=== PATIENT | female | born 1990 | race Asian ===

== ENCOUNTER 2018-07-26 13:12 | Emergency (ER) | payer OTHER ==
[~2018-07-26] VITALS: Ht 175.3 cm; Wt 127.9 kg
--- NOTE | 2018-07-26 13:38 | NUR ---
3 DAYS HX OF COUGH/SOB. DENIES FEVER/N/V. FEVER OF OF 99.9 IN TRIAGE. CLEAR LUNGS
--- NOTE | 2018-07-26 13:49 | NUR ---
FAMILY SERVICES ASSISTANT FINALLY ABLE TO OBTAIN B/P CABLE-BLOOD PRESSURE 240. RECHECKED X3 W/ CORRECT CUFF AND BILATERAL ARMS. TO TRANSFER TO CORE ROOM
[2018-07-26] MEDS ORDERED: ASPIRIN 81 MG TABLET CHEW PO ONE (14:00)
--- NOTE | 2018-07-26 14:04 | NUR ---
MANUAL B/P OF 255/160.-PROVIDER AWARE EMT AT BEDSIDE OBTAINING PIV TRANSFERRED TO ROOM 15 REPORT TO EVETTE CHOI
--- NOTE | 2018-07-26 14:05 | NUR ---
DENIES COUGH MEDICINE/COLD MEDICINE DENIES SXS ASSOCIATED W/ HTN (VISION CHANGES/HEADAXHE/CMS ABNORMALITIES)
--- NOTE | 2018-07-26 14:15 | NUR ---
BREAK RN: PT UPRIGHT ON GURNEY AWAKE & COMFORTABLE, RESPONDS APPROP TO STAFF, NAD, COMFORT MEASURES PROVIDED, CALL LIGHT WITHIN REACH.
[2018-07-26] MEDS ORDERED: ENALAPRILAT 1.25 MG/ML, 1ML ONE (14:17)
[2018-07-26] MEDS ORDERED: ASPIRIN 81 MG TABLET CHEW ONE (14:17)
[2018-07-26 14:22] LABS: BASOPHILS # (AUTO) 0.01 x10^3/uL (0-0.1); BASOPHILS % (AUTO) 0 % (0-1); EOSINOPHILS # (AUTO) 0.06 x10^3/uL (0-0.4); EOSINOPHILS % (AUTO) 1 % (1-7); LYMPHOCYTES % (AUTO) 16 % (22-44); MD NO; MEAN CORPUSCULAR HEMOGLOBIN 24.4 pg (27.0-34.8); MEAN CORPUSCULAR HGB CONC 31.3 g/dL (32.4-35.8); MEAN CORPUSCULAR VOLUME 77.9 fL (80-100); MEAN PLATELET VOLUME 8.6 fL (7.4-10.4); MONOCYTES # (AUTO) 0.28 x10^3/uL (0.2-0.8); MONOCYTES % (AUTO) 3 % (2-9); NEUTROPHILS # (AUTO) 7.27 x10^3/uL (1.8-6.8); NEUTROPHILS % (AUTO) 80 % (42-75); PLATELET COUNT 305 x10^3/uL (130-400); RED BLOOD COUNT 5.53 x10^6/uL (3.82-5.3); RED CELL DISTRIBUTION WIDTH 16.3 % (9.6-15.2)
[2018-07-26] MEDS ORDERED: ENALAPRILAT 1.25 MG/ML, 2ML IV ONE (14:30)
[2018-07-26] MEDS ORDERED: LABETALOL 5MG/ML, 20ML IVPush ONE (14:30)
[2018-07-26 14:37] LABS: ALBUMIN 4.1 g/dL (3.4-5.0); ANION GAP 8 mmol/L (5-15); CALCIUM 8.8 mg/dL (8.5-10.1); CHLORIDE 110 mmol/L (98-107)
[2018-07-26 14:41] LABS: CREATININE 1.04 mg/dL (0.55-1.02)
[2018-07-26 14:42] LABS: TROPONIN I 0.038 ng/mL (0.000-0.045)
[2018-07-26 14:51] LABS: RAPID INFLUENZA A Negative (Negative); RAPID INFLUENZA B Negative (Negative)
--- NOTE | 2018-07-26 15:15 | NUR ---
meds ordered from pharmacy
[2018-07-26] MEDS ORDERED: LABETALOL 5 MG/ML SYRINGE IVPush ONE (15:30)
[2018-07-26 15:40] VITALS: BP 198/128
== END 2018-07-26 16:30 | disposition home or self-care (01) ==
LOC: ED 16:24
DX: J00 Acute nasopharyngitis [common cold] (principal); B34.9 Viral infection, unspecified; I10 Essential (primary) hypertension; F17.200 Nicotine dependence, unspecified, uncomplicated
CPT/HCPCS: 36415; 71046; 80048; 82040; 83880; 84484; 85025; 87400; 93005; 96374; 96375

== ENCOUNTER 2019-07-11 11:13 | Inpatient (IN) | payer OTHER ==
[~2019-07-11] VITALS: Ht 170.2 cm; Wt 126.9 kg
[2019-07-11] MEDS ORDERED: hydrALAzine 20 MG/ML, 1ML ONE ×2 (11:42→17:05)
[2019-07-11] MEDS ORDERED: LISINOPRIL 20 MG TABLET ONE (11:42)
[2019-07-11] MEDS ORDERED: ENALAPRILAT 1.25 MG/ML, 1ML ONE (11:47)
[2019-07-11] MEDS ORDERED: LABETALOL 5MG/ML, 20ML ONE (11:47)
--- NOTE | 2019-07-11 11:54 | NUR ---
PT WITH ELEVATED BP, 269/173. PT WITH C/O JOENS X 3 DAYS. PT STATES SHE HAS BEEN OUT OF HER LISINOPRIL FOR APPROX 1 MONTH. PT DENIES CP,SOB. PT HAS A COUGH X 2 WEEKS WITH THICK MUCOUS, GREEN/WHITE. PT DENIES FEVERS. ERPROVIDER IN TO EVAL PT, ORDERS RECIEVED. PIV INITIATED BY TRAUMA RN. PT MEDICATED PER MAR Addendum: 07/11/19 at 1158 by HERB NO OTHER NEURO SYMPTOMS REPORTED, GROSS NEURO INTACT
[2019-07-11] MEDS ORDERED: LABETALOL 5MG/ML, 20ML IVPush ONE ×2 (12:00→13:00)
[2019-07-11] MEDS ORDERED: ENALAPRILAT 1.25 MG/ML, 2ML IV ONE (12:00)
[2019-07-11 12:02] LABS: BASOPHILS # (AUTO) 0.02 x10^3/uL (0-0.1); BASOPHILS % (AUTO) 0 % (0-1); EOSINOPHILS # (AUTO) 0.03 x10^3/uL (0-0.4); EOSINOPHILS % (AUTO) 0 % (1-7); LYMPHOCYTES # (AUTO) 1.75 x10^3/uL (1-3.4); LYMPHOCYTES % (AUTO) 19 % (22-44); MD NO; MEAN CORPUSCULAR HGB CONC 33.1 g/dL (32.4-35.8); MEAN CORPUSCULAR VOLUME 84.8 fL (80-100); MEAN PLATELET VOLUME 8.2 fL (7.4-10.4); MONOCYTES # (AUTO) 0.36 x10^3/uL (0.2-0.8); MONOCYTES % (AUTO) 4 % (2-9); NEUTROPHILS # (AUTO) 6.88 x10^3/uL (1.8-6.8); NEUTROPHILS % (AUTO) 76 % (42-75); PLATELET COUNT 259 x10^3/uL (130-400); RED BLOOD COUNT 5.38 x10^6/uL (3.82-5.3); RED CELL DISTRIBUTION WIDTH 14.7 % (9.6-15.2)
[2019-07-11 12:10] LABS: ALANINE AMINOTRANSFERASE 27 U/L (12-78); ANION GAP 9 mmol/L (5-15); CALCIUM 8.9 mg/dL (8.5-10.1); CHLORIDE 104 mmol/L (98-107); CREATININE 1.44 mg/dL (0.55-1.02)
[2019-07-11 12:12] LABS: ALKALINE PHOSPHATASE 61 U/L (45-117); BILIRUBIN,TOTAL 0.7 mg/dL (0.2-1.0); TOTAL PROTEIN 7.9 g/dL (6.4-8.2)
--- NOTE | 2019-07-11 12:16 | NUR ---
PT TO CT AT THIS TIME
[2019-07-11] MEDS ORDERED: MORPHINE SULFATE 4 MG/ML, 1ML ONE (12:43)
[2019-07-11] MEDS ORDERED: MORPHINE SULFATE 4 MG/ML, 1ML IVPush ONE (13:00)
[2019-07-11 13:08] LABS: MICROSCOPIC INDICATED
[2019-07-11] MEDS ORDERED: POTASSIUM CHLORIDE 20 MEQ TAB.ER.PRT PO ONE (13:30)
--- NOTE | 2019-07-11 13:32 | NUR ---
TASK NURSE: RECEIVED REPORT FROM LOUIE
[2019-07-11] MEDS ORDERED: POTASSIUM CHLORIDE 20 MEQ TAB.ER.PRT ONE (13:53)
--- NOTE | 2019-07-11 14:01 | NUR ---
ADMITING PROVIDER AT BEDSIDE EXAMINING PT
[2019-07-11] MEDS ORDERED: HYDROmorphone 1 MG/ML, 1ML INJ IV ONE (14:30)
--- NOTE | 2019-07-11 15:19 | NUR ---
PT LYING IN BED. RN IN TO INTRODUCE NEW STAFF, RELIEVING DAY RN. REPORT FROM LOUIE CHOI. VITALS TAKEN AND BLOOD PRESSURE REMAINS HIGH. ATTEMPTING TO OBTAIN A BED FOR THE PATIENT. PT C/O HEADACE IN THE OCCIPITAL REGION. WILL INSPECT HER MEDICATION LIST TO SEE IF ANY PRN'S ARE AVAILABLE AT THIS TIME.
--- NOTE | 2019-07-11 15:34 | NUR ---
RN IN TO ASSESS PATIENT. PT SITTING UP IN BED. ORDER TO WALK PATIENT WITH PULSE TO EXAM OXYGEN LEVELS. RN ATTACHES PORTABLE PULSE OX TO PATIENT, AND PATIENT AMBULATES WITH RN AROUND THE RESP SIDE OF THE ED. PT WEARS MASK ENTIRE TIME, AND SATS STAY AT 93-94%. PT DID NOT RUN OUT OF BREATH, OR BECOME SOB ON WALK. MD INFORMED OF PATIENT STATUS. MD INTO ROOM TO DISCUSS POC.
--- NOTE | 2019-07-11 15:38 | NUR ---
MRI CALLED TO INFORM RN THAT THE TEST ORDER FOR HER WILL BE AVAILABLE IN 45 MINUTES. RN INTO ROOM TO COMPLETE THE MRI SCREENING TOOL. PT TOLERATED PROCEDURE WELL.
--- NOTE | 2019-07-11 16:05 | NUR ---
PT TO XRAY AND THEN WILL GO TO MRI
[2019-07-11] MEDS ORDERED: AMLODIPINE 5 MG TABLET PO SCH (16:30)
[2019-07-11] MEDS ORDERED: hydrALAzine 20 MG/ML, 1ML IVPush PRN (16:30)
[2019-07-11] MEDS ORDERED: GADOTERATE 10 MMOL/20 ML SYR ONE (16:33)
--- NOTE | 2019-07-11 17:00 | NUR ---
UPON RETURN FROM MRI ASSUMED CARE OF PT. C/O JONES AND TO BE MEDICATED FOR SAME. a&oX4
[2019-07-11] MEDS ORDERED: AMLODIPINE 5 MG TABLET ONE (17:02)
[2019-07-11] MEDS ORDERED: HEPARIN 5,000 UNITS/ML, 1ML ONE (17:03)
[2019-07-11] MEDS ORDERED: HYDROmorphone 1 MG/ML, 1ML INJ ONE (17:04)
[2019-07-11] MEDS: HEPARIN 5,000 UNITS/ML, 1ML SQ SCH ×2 (17:08→23:55)
[2019-07-11] MEDS: hydrALAzine 20 MG/ML, 1ML IVPush PRN (17:09)
--- NOTE | 2019-07-11 17:40 | NUR ---
CALL OUT TO [facility] TO DISCUSS CURRENT BP AND TO CLARIFY WHETHER PT NEEDS TO HAVE COVID R/O
--- NOTE | 2019-07-11 17:58 | NUR ---
THROUGHPUT: SPOKE WITH [facility] RESIDENT REGARDING COVID-19 R/O WILL COME DOWN AND TALKE WITH PATIENT AND FOLLOW UP WITH PRIMARY
[2019-07-11] MEDS ORDERED: ONDANSETRON 2MG/ML, 2ML ONE ×2 (18:05→19:37)
[2019-07-11] MEDS ORDERED: ONDANSETRON ODT 4 MG ONE (18:09)
--- NOTE | 2019-07-11 18:10 | NUR ---
SITTING ON EDGE OF BED AND VOMITED TIMES 1. MEDICATED PER PROTOCOL WITH ZOFRAN FOR SAME
--- NOTE | 2019-07-11 18:20 | NUR ---
DR SHAH AWARE OF CURRENT BP
--- NOTE | 2019-07-11 18:20 | NUR ---
DR GASPAR AT BEDSIDE EXAMINING PT
[2019-07-11] MEDS ORDERED: BUTALB/APAP/CAFFEINE 50MG/325MG/40MG PO ONE (18:30)
[2019-07-11] MEDS ORDERED: ONDANSETRON 2MG/ML, 2ML IVPush ONE (18:30)
[2019-07-11] MEDS ORDERED: morphine SULFATE/PF 1 MG/ML, 10ML IV PRN (18:30)
[2019-07-11] MEDS ORDERED: ONDANSETRON ODT 4 MG SL ONE (18:30)
--- NOTE | 2019-07-11 19:01 | NUR ---
REPORT TO MIA CHOI.
--- NOTE | 2019-07-11 19:47 | NUR ---
ASSUMED CARE OF PT. PT RESTING ON GURNEY C/O JONES 08/30 AND NAUSEA, MEDICATED PER APR.
--- NOTE | 2019-07-11 19:59 | NUR ---
REPORT GIVEN TO DAYLIN CHOI.
[2019-07-11] MEDS: ACETAMINOPHEN 325 MG TABLET PO PRN (21:00)
[2019-07-11] MEDS: MORPHINE SULFATE 4 MG/ML, 1ML IV PRN ×2 (21:01→23:56)
[2019-07-11 21:02] LABS: HCG UR SG 1.024 (1.003-1.030)
[2019-07-11 21:16] LABS: AMPHETAMINE SCREEN, URINE Negative (Negative); BARBITURATE SCREEN, URINE Negative (Negative); BENZODIAZEPINE SCREEN, URINE Negative (Negative); CANNABINOID SCREEN, URINE Negative (Negative); COCAINE SCREEN, URINE Negative (Negative); METHADONE SCREEN, URINE Negative (Negative); OPIATE SCREEN, URINE Negative (Negative)
[2019-07-11 22:16] VITALS: BP 220/127
[2019-07-12 04:19] VITALS: BP 199/127
[2019-07-12] MEDS: hydrALAzine 20 MG/ML, 1ML IVPush PRN (04:35)
[2019-07-12] MEDS ORDERED: AMLODIPINE 5 MG TABLET PO ONE (05:00)
[2019-07-12] MEDS: MORPHINE SULFATE 4 MG/ML, 1ML IV PRN ×2 (05:07→09:07)
[2019-07-12 05:28] LABS: BASOPHILS # (AUTO) 0.01 x10^3/uL (0-0.1); BASOPHILS % (AUTO) 0 % (0-1); EOSINOPHILS % (AUTO) 2 % (1-7); LYMPHOCYTES # (AUTO) 1.99 x10^3/uL (1-3.4); LYMPHOCYTES % (AUTO) 30 % (22-44); MD NO; MEAN CORPUSCULAR HEMOGLOBIN 27.9 pg (27.0-34.8); MEAN CORPUSCULAR HGB CONC 32.6 g/dL (32.4-35.8); MEAN CORPUSCULAR VOLUME 85.6 fL (80-100); MEAN PLATELET VOLUME 8.8 fL (7.4-10.4); MONOCYTES # (AUTO) 0.42 x10^3/uL (0.2-0.8); MONOCYTES % (AUTO) 6 % (2-9); NEUTROPHILS % (AUTO) 62 % (42-75); PLATELET COUNT 216 x10^3/uL (130-400); RED BLOOD COUNT 4.98 x10^6/uL (3.82-5.3); RED CELL DISTRIBUTION WIDTH 14.8 % (9.6-15.2)
[2019-07-12 05:32] LABS: ANION GAP 8 mmol/L (5-15); CALCIUM 8.7 mg/dL (8.5-10.1); CHLORIDE 106 mmol/L (98-107); CREATININE 1.28 mg/dL (0.55-1.02)
[2019-07-12 05:38] LABS: C-REACTIVE PROTEIN, QUANT 0.08 mg/dL (0.02-0.49)
[2019-07-12 05:57] LABS: HCT (SEDRATE) 42.6 % (34.6-47.8)
[2019-07-12] MEDS: HEPARIN 5,000 UNITS/ML, 1ML SQ SCH ×2 (08:53→16:35)
[2019-07-12 09:10] VITALS: BP 207/117
[2019-07-12] MEDS: ONDANSETRON 2MG/ML, 2ML IVPush PRN (09:20)
[2019-07-12] MEDS ORDERED: methylPREDNISolone SOD SUCC 40 MG/ML IV SCH (10:00)
[2019-07-12] MEDS ORDERED: PHARMACOKINETIC MONITORING MC PRN (10:30)
[2019-07-12] MEDS ORDERED: CEFTRIAXONE PMX 2GM/50ML 50 ML IV SCH (10:30)
[2019-07-12] MEDS ORDERED: VANCOMYCIN PER PHARMACY MC PRN ×2 (10:30)
[2019-07-12 10:38] VITALS: BP 170/92
[2019-07-12] MEDS: ACYCLOVIR 850 MG in SODIUM CHLORIDE 0.9% 250 ML IV SCH ×2 (10:49→21:09)
[2019-07-12] MEDS ORDERED: VANCOMYCIN 1,800 MG in SODIUM CHLORIDE 0.9% 250 ML IV SCH (11:00)
[2019-07-12] MEDS ORDERED: PROMETHAZINE 25 MG/ML, 1ML ONE (11:20)
[2019-07-12] MEDS ORDERED: PROMETHAZINE 25 MG/ML, 1ML IM PRN (11:30)
[2019-07-12] MEDS ORDERED: LIDOCAINE 1%, 10ML ONE (11:41)
[2019-07-12] MEDS: ACETAMINOPHEN 325 MG TABLET PO PRN ×3 (13:14→22:34)
[2019-07-12 13:58] LABS: GLUCOSE, CSF 49 mg/dL (40-80); TOTAL PROTEIN,CSF 86 mg/dL (15-45)
[2019-07-12 16:38] VITALS: BP 155/93
[2019-07-13] MEDS: HEPARIN 5,000 UNITS/ML, 1ML SQ SCH ×3 (00:30→15:59)
[2019-07-13] MEDS: hydrALAzine 20 MG/ML, 1ML IVPush PRN (04:22)
[2019-07-13] MEDS: ONDANSETRON 2MG/ML, 2ML IVPush PRN (04:22)
[2019-07-13] MEDS: ACYCLOVIR 850 MG in SODIUM CHLORIDE 0.9% 250 ML IV SCH ×3 (04:23→21:59)
[2019-07-13] MEDS: ACETAMINOPHEN 325 MG TABLET PO PRN ×2 (04:55→08:36)
[2019-07-13] MEDS: MORPHINE SULFATE 4 MG/ML, 1ML IV PRN (06:28)
[2019-07-13] MEDS: AMLODIPINE 5 MG TABLET PO SCH (08:31)
[2019-07-13] MEDS ORDERED: methylPREDNISolone SOD SUCC 125 MG/2 ML ONE (08:33)
[2019-07-13] MEDS ORDERED: hydrALAzine 20 MG/ML, 1ML IVPush PRN (12:30)
[2019-07-13] MEDS: LISINOPRIL 20 MG TABLET PO SCH ×2 (12:34→21:59)
[2019-07-13] MEDS: LABETALOL 5MG/ML, 20ML IVPush PRN ×2 (12:34→15:59)
[2019-07-13] MEDS: CALCIUM CARBONATE 500 MG TAB.CHEW PO PRN ×2 (17:53→23:14)
[2019-07-14] MEDS: HEPARIN 5,000 UNITS/ML, 1ML SQ SCH ×3 (00:30→17:53)
[2019-07-14 01:15] LABS: TROPONIN I 0.154 ng/mL (0.000-0.045)
[2019-07-14] MEDS: ACYCLOVIR 850 MG in SODIUM CHLORIDE 0.9% 250 ML IV SCH (04:46)
[2019-07-14] MEDS: LABETALOL 5MG/ML, 20ML IVPush PRN (04:46)
[2019-07-14 04:53] LABS: ANION GAP 6 mmol/L (5-15); CALCIUM 8.5 mg/dL (8.5-10.1); CHLORIDE 106 mmol/L (98-107)
[2019-07-14 04:58] LABS: CREATININE 1.37 mg/dL (0.55-1.02); TROPONIN I 0.176 ng/mL (0.000-0.045)
[2019-07-14] MEDS: CALCIUM CARBONATE 500 MG TAB.CHEW PO PRN ×2 (06:20→13:15)
[2019-07-14] MEDS: AMLODIPINE 5 MG TABLET PO SCH (08:04)
[2019-07-14] MEDS: LISINOPRIL 20 MG TABLET PO SCH ×2 (08:05→20:14)
[2019-07-14] MEDS: CARVEDILOL 6.25 MG TABLET PO SCH ×2 (13:16→17:53)
[2019-07-15] MEDS: HEPARIN 5,000 UNITS/ML, 1ML SQ SCH ×3 (00:30→17:08)
[2019-07-15] MEDS: CARVEDILOL 6.25 MG TABLET PO SCH ×2 (06:22→17:08)
[2019-07-15] MEDS: AMLODIPINE 5 MG TABLET PO SCH (08:17)
[2019-07-15] MEDS: LISINOPRIL 20 MG TABLET PO SCH ×3 (08:17→21:42)
[2019-07-15] MEDS: DOXAZOSIN 2MG TABLET PO SCH (10:27)
[2019-07-15] MEDS ORDERED: LISINOPRIL 20 MG TABLET PO ONE (10:30)
[2019-07-15] MEDS: ACETAMINOPHEN 325 MG TABLET PO PRN (15:02)
[2019-07-15] MEDS: ALUMINUM/MAG/SIMETHICONE 30 ML UDC PO PRN (17:08)
[2019-07-15] MEDS: ONDANSETRON 2MG/ML, 2ML IVPush PRN (18:53)
[2019-07-16] MEDS: HEPARIN 5,000 UNITS/ML, 1ML SQ SCH ×3 (00:03→16:30)
[2019-07-16 04:15] LABS: ANION GAP 7 mmol/L (5-15); CALCIUM 8.1 mg/dL (8.5-10.1); CHLORIDE 107 mmol/L (98-107)
[2019-07-16] MEDS: LABETALOL 5MG/ML, 20ML IVPush PRN ×2 (04:20→14:37)
[2019-07-16] MEDS: DOXAZOSIN 2MG TABLET PO SCH (08:10)
[2019-07-16] MEDS: CARVEDILOL 6.25 MG TABLET PO SCH ×4 (08:10→18:41)
[2019-07-16] MEDS: AMLODIPINE 5 MG TABLET PO SCH (08:11)
[2019-07-16] MEDS: LISINOPRIL 20 MG TABLET PO SCH ×2 (08:11→20:18)
[2019-07-16] MEDS ORDERED: methylPREDNISolone SOD SUCC 40 MG/ML IV ONE (09:00)
[2019-07-16] MEDS: ALUMINUM/MAG/SIMETHICONE 30 ML UDC PO PRN (09:34)
[2019-07-16] MEDS ORDERED: FAMOTIDINE 20 MG TABLET PO ONE (11:30)
[2019-07-16 16:19] VITALS: BP 174/99
[2019-07-16 16:29] VITALS: BP 147/71
[2019-07-16 20:02] VITALS: BP 160/89
[2019-07-16] MEDS: ACETAMINOPHEN 325 MG TABLET PO PRN (20:18)
[2019-07-17] VITALS (12 sets, daily range): BP systolic 124–201; BP diastolic 68–117
[2019-07-17] MEDS: HEPARIN 5,000 UNITS/ML, 1ML SQ SCH ×3 (00:31→16:27)
[2019-07-17] MEDS: CARVEDILOL 6.25 MG TABLET PO SCH ×3 (05:21→17:52)
[2019-07-17 05:45] LABS: ANION GAP 6 mmol/L (5-15); CALCIUM 7.8 mg/dL (8.5-10.1); CHLORIDE 107 mmol/L (98-107)
[2019-07-17 05:50] LABS: CREATININE 1.29 mg/dL (0.55-1.02)
[2019-07-17] MEDS ORDERED: ACETAMINOPHEN 500 MG TABLET PO ONE (08:00)
[2019-07-17] MEDS: DOXAZOSIN 2MG TABLET PO SCH (08:06)
[2019-07-17] MEDS: LISINOPRIL 20 MG TABLET PO SCH ×2 (08:06→20:25)
[2019-07-17] MEDS: AMLODIPINE 5 MG TABLET PO SCH (08:06)
[2019-07-17] MEDS: LABETALOL 5MG/ML, 20ML IVPush PRN ×2 (16:27→21:56)
[2019-07-17] MEDS: ALUMINUM/MAG/SIMETHICONE 30 ML UDC PO PRN ×2 (17:33→21:56)
[2019-07-17] MEDS: ONDANSETRON 2MG/ML, 2ML IVPush PRN (17:34)
[2019-07-17 17:43] LABS: ANA SCREEN NEGATIVE (Negative)
[2019-07-17] MEDS: CALCIUM CARBONATE 500 MG TAB.CHEW PO PRN (19:27)
[2019-07-17] MEDS: ACETAMINOPHEN 325 MG TABLET PO PRN (19:29)
[2019-07-17] MEDS: AMLODIPINE 10 MG TAB PO SCH (20:25)
[2019-07-18] MEDS: HEPARIN 5,000 UNITS/ML, 1ML SQ SCH ×4 (00:40→16:30)
[2019-07-18 00:41] VITALS: BP 159/98
[2019-07-18 06:43] VITALS: BP 166/103
[2019-07-18] MEDS: ALUMINUM/MAG/SIMETHICONE 30 ML UDC PO PRN (07:45)
[2019-07-18] MEDS: AMLODIPINE 10 MG TAB PO SCH ×2 (07:46→20:21)
[2019-07-18] MEDS: DOXAZOSIN 2MG TABLET PO SCH (07:46)
[2019-07-18] MEDS: LISINOPRIL 20 MG TABLET PO SCH ×2 (07:46→20:21)
[2019-07-18] MEDS ORDERED: LABETALOL 5MG/ML, 20ML IVPush PRN (08:30)
[2019-07-18 08:52] VITALS: BP 160/95
[2019-07-18] MEDS ORDERED: HYDROCHLOROTHIAZIDE 12.5 MG CAPSULE PO ONE (11:30)
[2019-07-18 12:11] VITALS: BP 156/99
[2019-07-18] MEDS ORDERED: hydrALAzine 20 MG/ML, 1ML IVPush PRN (12:30)
[2019-07-18] MEDS: ONDANSETRON 2MG/ML, 2ML IVPush PRN (14:46)
[2019-07-18] MEDS: CARVEDILOL 6.25 MG TABLET PO SCH (18:00)
[2019-07-18 20:10] VITALS: BP 158/99
[2019-07-19] MEDS: ACETAMINOPHEN 325 MG TABLET PO PRN ×3 (00:15→21:48)
[2019-07-19] MEDS: HEPARIN 5,000 UNITS/ML, 1ML SQ SCH ×4 (00:31→23:23)
[2019-07-19 01:34] VITALS: BP 147/96
[2019-07-19] MEDS: ONDANSETRON 2MG/ML, 2ML IVPush PRN ×3 (06:22→23:08)
[2019-07-19 06:36] LABS: ANION GAP 9 mmol/L (5-15); CALCIUM 7.8 mg/dL (8.5-10.1); CHLORIDE 105 mmol/L (98-107)
[2019-07-19 06:37] LABS: CREATININE 1.01 mg/dL (0.55-1.02)
[2019-07-19] MEDS ORDERED: HYDROCHLOROTHIAZIDE MC SCH (07:30)
[2019-07-19] MEDS: AMLODIPINE 10 MG TAB PO SCH ×2 (08:40→20:12)
[2019-07-19] MEDS: HYDROCHLOROTHIAZIDE 25 MG TABLET PO SCH (08:41)
[2019-07-19] MEDS: LISINOPRIL 20 MG TABLET PO SCH ×2 (08:41→20:12)
[2019-07-19 11:18] VITALS: BP 160/100
[2019-07-19] MEDS: FLUTICASONE NASAL SPRAY 16GM NAS SCH ×2 (15:13→20:18)
[2019-07-19 15:30] VITALS: BP 157/99
[2019-07-19 15:36] VITALS: BP 157/99
[2019-07-19 19:19] VITALS: BP 149/89
[2019-07-19 20:10] VITALS: BP 160/95
[2019-07-19] MEDS: FAMOTIDINE 20 MG TABLET PO SCH (20:18)
[2019-07-20 01:46] VITALS: BP 130/93
[2019-07-20 07:15] VITALS: BP 151/89
[2019-07-20 07:57] LABS: ANION GAP 9 mmol/L (5-15); CALCIUM 8.7 mg/dL (8.5-10.1); CHLORIDE 103 mmol/L (98-107); CREATININE 1.07 mg/dL (0.55-1.02)
[2019-07-20] MEDS ORDERED: HYDROCHLOROTHIAZIDE 12.5 MG CAPSULE PO SCH (09:00)
[2019-07-20] MEDS: LISINOPRIL 20 MG TABLET PO SCH (09:43)
[2019-07-20] MEDS: HYDROCHLOROTHIAZIDE 25 MG TABLET PO SCH (09:43)
[2019-07-20] MEDS: AMLODIPINE 10 MG TAB PO SCH (09:43)
[2019-07-20] MEDS: FAMOTIDINE 20 MG TABLET PO SCH (09:44)
[2019-07-20] MEDS: FLUTICASONE NASAL SPRAY 16GM NAS SCH (09:45)
[2019-07-20] MEDS: HEPARIN 5,000 UNITS/ML, 1ML SQ SCH (09:45)
[2019-07-20] MEDS ORDERED: LISI-170 PO (11:15)
[2019-07-20] MEDS ORDERED: HYDR25TA6 PO (11:15)
[2019-07-20] MEDS ORDERED: AMLO10TA8 PO (11:15)
[2019-07-20 12:52] VITALS: BP 150/97
== END 2019-07-20 14:44 | disposition home or self-care (01) | DRG 304 ==
LOC: ED 13:17 → EDIP 13:30 → ICU 20:34 → CCU 07-15 13:43 → 4EST 07-16 16:10 → DCLOUNGE 07-20 14:27
PROVIDERS: ADMIT Family Medicine; ATTEND Family Medicine
PROC: 009U3ZZ Drainage of Spinal Canal, Percutaneous Approach (ICD-10-PCS; principal; 2019-07-12)
PROC: B01B1ZZ Fluoroscopy of Spinal Cord using Low Osmolar Contrast (ICD-10-PCS; 2019-07-12)
DX: I16.1 Hypertensive emergency (principal); N17.0 Acute kidney failure with tubular necrosis; I10 Essential (primary) hypertension; F17.210 Nicotine dependence, cigarettes, uncomplicated; E87.6 Hypokalemia; K21.9 Gastro-esophageal reflux disease without esophagitis; R51 Headache; Z90.49 Acquired absence of other specified parts of digestive tract; Z82.49 Family history of ischemic heart disease and other diseases of the circulatory system
CPT/HCPCS: 36415; 89051; 96372; 96374; 96375; 99291; J3490; 62328; 70450; 70551; 70553; 71046; 80048; 80053; 80307; 81001; 81025; 82040; 82945; 83605; 84157; 84244; 84443; 84484; 85025; 85651; 86038; 86140; 86710; 87070; 87081; 87086; 87205; 87252; 87529; 87798; 93005; 93308; 93321; 93325; 93975; G0378; J0133; J0696; J1170; J1644; J2405; J2550; J2930; J3370; Q0162; A9575; J0360; J2270; J7050; U0001-CS

== ENCOUNTER 2019-12-20 09:35 | Emergency (ER) | payer OTHER ==
[~2019-12-20] VITALS: Ht 175.3 cm; Wt 135.1 kg
[~2019-12-20 09:35] MED LIST: AMLO10TA8 PO; HYDR25TA6 PO; LISI-170 PO
--- NOTE | 2019-12-20 09:38 | NUR ---
NO ANSWER IN LOBBY.
[2019-12-20 09:42] VITALS: BP 155/86
== END 2019-12-20 10:20 | disposition home or self-care (01) ==
LOC: ED 10:10
DX: B34.9 Viral infection, unspecified (principal); Z20.828 Contact with and (suspected) exposure to other viral communicable diseases; I10 Essential (primary) hypertension
CPT/HCPCS: 36415; 87635; 99283

== ENCOUNTER 2020-04-22 09:27 | Emergency (ER) | payer OTHER ==
[~2020-04-22] VITALS: Ht 175.3 cm; Wt 136.1 kg
[~2020-04-22 09:27] MED LIST changes: +AMLO-211 PO; -AMLO10TA8 PO
[2020-04-22 09:35] VITALS: BP 153/102
--- NOTE | 2020-04-22 09:40 | NUR ---
[employer]: EKG completed in triage
--- NOTE | 2020-04-22 10:50 | NUR ---
Patient is resting comfortably in bed. Vital Signs within normal limits.
== END 2020-04-22 11:59 ==
LOC: ED 10:49
DX: U07.1 COVID-19 (principal); J06.9 Acute upper respiratory infection, unspecified; R09.81 Nasal congestion; J02.9 Acute pharyngitis, unspecified; I10 Essential (primary) hypertension; R05 Cough; M79.10 Myalgia, unspecified site
CPT/HCPCS: 71045; 93005; 99285; U0003

== ENCOUNTER 2020-05-14 08:51 | Emergency (ER) | payer OTHER ==
[~2020-05-14] VITALS: Ht 175.3 cm; Wt 137.8 kg
--- NOTE | 2020-05-14 09:01 | NUR ---
EKG IN TRIAGE
--- NOTE | 2020-05-14 09:13 | NUR ---
ERP AT BEDSIDE
--- NOTE | 2020-05-14 09:29 | NUR ---
XRAY AT BEDSIDE
[2020-05-14 09:51] LABS: BASOPHILS % (AUTO) 1 % (0-1); EOSINOPHILS % (AUTO) 1 % (1-7); LYMPHOCYTES % (AUTO) 23 % (22-44); MEAN CORPUSCULAR HEMOGLOBIN 30.2 pg (27.0-34.8); MEAN CORPUSCULAR HGB CONC 33.9 g/dL (32.4-35.8); MEAN PLATELET VOLUME 7.7 fL (7.4-10.4); MONOCYTES % (AUTO) 7 % (2-9); NEUTROPHILS % (AUTO) 69 % (42-75); PLATELET COUNT 336 x10^3/uL (130-400); RED BLOOD COUNT 4.32 x10^6/uL (3.82-5.3); RED CELL DISTRIBUTION WIDTH 13.3 % (9.6-15.2)
[2020-05-14 09:54] LABS: MD NO
[2020-05-14 09:59] LABS: ALANINE AMINOTRANSFERASE 18 U/L (12-78); ALBUMIN 3.6 g/dL (3.4-5.0); ANION GAP 6 mmol/L (5-15); CALCIUM 8.5 mg/dL (8.5-10.1); CHLORIDE 106 mmol/L (98-107); CREATININE 1.71 mg/dL (0.55-1.02)
--- NOTE | 2020-05-14 10:03 | NUR ---
PT UPRIGHT ON GURNEY, RESTING COMFORTABLY. PT DENIES ANY NEEDS AT THIS TIME. CALL LIGHT AND BELONGINGS WITHIN REACH.
[2020-05-14 10:04] LABS: ALKALINE PHOSPHATASE 43 U/L (45-117); BILIRUBIN,TOTAL 0.2 mg/dL (0.2-1.0)
--- NOTE | 2020-05-14 11:14 | NUR ---
dr araiza spoke with r
--- NOTE | 2020-05-14 11:28 | NUR ---
PT DISCUSSING PLAN OF CARE WITH THIS RN AND STATES "I DON'T WANT TO STAY IN THE HOSPITAL, I WOULD RATHER GO HOME AND HYDRATE AND GET MY BLOOD DRAWN IN A WEEK, LIKE WHAT THAT DOCTOR SAID". ERP AWARE OF PT CHOICE. AWAITING D/C
[2020-05-14] MEDS ORDERED: ONDANSETRON ODT 4 MG PO PRN (11:30)
[2020-05-14] MEDS ORDERED: ACETAMINOPHEN 325 MG TABLET PO PRN (11:30)
[2020-05-14] MEDS ORDERED: ENALAPRILAT 1.25 MG/ML, 2ML IVPush PRN (11:30)
[2020-05-14] MEDS ORDERED: ONDANSETRON 2MG/ML, 2ML IVPush PRN (11:30)
[2020-05-14] MEDS ORDERED: SODIUM CHLORIDE 0.9% 1,000 ML IV SCH (11:30)
[2020-05-14] MEDS ORDERED: ENOXAPARIN 40 MG/0.4 ML SQ SCH (11:30)
[2020-05-14 11:50] VITALS: BP 152/92
[2020-05-14] MEDS ORDERED: SODIUM CHLORIDE 0.9% 1,000ML IVBOLUS ONE (12:00)
[2020-05-14] MEDS ORDERED: HEPARIN 5,000 UNITS/ML, 1ML SQ SCH (12:00)
[2020-05-14] MEDS ORDERED: LISINOPRIL 20 MG TABLET PO SCH (21:00)
[2020-05-15] MEDS ORDERED: HYDROCHLOROTHIAZIDE 25 MG TABLET PO SCH (09:00)
== END 2020-05-14 11:52 | disposition home or self-care (01) ==
LOC: ED 09:11
DX: N28.9 Disorder of kidney and ureter, unspecified (principal); I10 Essential (primary) hypertension; R42 Dizziness and giddiness; R55 Syncope and collapse; R07.89 Other chest pain
CPT/HCPCS: 36415; 71045; 80053; 84703; 85025; 93005; 99285

== ENCOUNTER 2020-08-08 08:38 | Emergency (ER) | payer OTHER ==
[~2020-08-08] VITALS: Ht 175.3 cm; Wt 36.3 kg
--- NOTE | 2020-08-08 09:41 | NUR ---
PT AMBULATORY TO ROOM 4 W/ C/O CONGESTION, RUNNY NOSE, SORE THROAT, COUGH, DIARRHEA X 2 DAYS. PT DENIES ANY CLOSE CONTACT W/ COVID CASE. PT RESTING ON GURNEY. NADN. MONITORS APPLIED. VSS. WARM BLANKET PROVIDED. CALL LIGHT IN REACH.
[2020-08-08 09:45] VITALS: BP 165/97
== END 2020-08-08 11:05 | disposition home or self-care (01) ==
LOC: ED 09:49
DX: J00 Acute nasopharyngitis [common cold] (principal); Z20.822 Contact with and (suspected) exposure to COVID-19; R06.02 Shortness of breath; B97.89 Other viral agents as the cause of diseases classified elsewhere; I10 Essential (primary) hypertension; F17.200 Nicotine dependence, unspecified, uncomplicated
CPT/HCPCS: 71045; 99284; U0003; U0005